=== PATIENT | female | born 1950 | race Two or more races ===

== ENCOUNTER → 2020-07-18 | Outpatient (CLI) | payer MEDICAID ==
[~2020-07-18] MED LIST: BUME1TAB3 PO; CLON0.2D6 EPI; EPOE20006 IJ; FERR325T50 PO; GABA300C10 PO; TERA2CAP45 PO
== END | disposition home or self-care (01) ==
LOC: LAB 14:06
PROVIDERS: ATTEND Physician Assistant
DX: N39.0 Urinary tract infection, site not specified (principal)
CPT/HCPCS: 87086